=== PATIENT | female | born 1960 | race Caucasian/White ===

== ENCOUNTER 2017-07-15 09:16 | Emergency (ER) | payer SELFPAY ==
[~2017-07-15] VITALS: Ht 175.3 cm; Wt 78.0 kg
[~2017-07-15 09:16] MED LIST: ADDE30TA PO; ALPR.25 PO; CLON.5 PO
[2017-07-15 09:22] VITALS: BP 142/85; PULSE 84; RESP 15; TEMP 98.5; O2SAT 97
[2017-07-15] MEDS ORDERED: PERM5CRE11 TOPICAL (11:45)
--- NOTE | 2017-07-15 11:52 | PD ---
HPI Chief Complaint: Skin Problem Time Seen by Provider: 11:29 Travel History International Travel<30 days: No Contact w/Intl Traveler<30days: No Traveled to known affect area: No History of Present Illness HPI 57-year-old female presents the emergency department with 2 weeks of itchy rash to both feet, lower legs, hands, wrists, and perineal region. Patient is questioning whether it is from poison oak or sumac. Patient denies fever, chills, or other symptoms. She has been using [id number] medications without improvement. She is allergic to acetaminophen and propoxyphene. [facility] Past Medical History Musculoskeletal: Yes (chronic back pain) ?: Not Social History Alcohol Use: No Tobacco Use: Yes Allergies-Medications (Allergen,Severity, Reaction): Coded Allergies: acetaminophen (Verified Allergy, Severe, Hives, 07/15/17) propoxyphene (Verified Allergy, Severe, Hives, 07/15/17) Reported Meds & Prescriptions Reported Meds & Active Scripts Active Elimite Topical (Permethrin) 5% Cream 1 Applic TOPICAL ONCE Reported Klonopin (Clonazepam) 0.5 Mg Tab 0.5 Mg PO DAILY Xanax 0.25 Mg (Alprazolam) Alprazolam 0.25 mg Tab 1 Tab PO BID Adderall 30 mg (Amphetamine/Dextroamphetamine) 30 Mg Tab 30 Mg PO DAILY Physical Exam Narrative GENERAL: She has no acute distress. SKIN: Warm and dry. Normal color. Normal turgor. Patient has excoriated linear skin lesions to both lower extremities, feet, hands, wrists, and groin region consistent with scabies. There is no obvious signs of cellulitis, abscess, lymphangitis. HEAD: Atraumatic. Normocephalic. EYES: Pupils equal and round. No scleral icterus. No injection or drainage. ENT: No nasal bleeding or discharge. Mucous membranes pink and moist. Pharynx is clear. Airway is patent. NECK: Trachea midline. Supple. CARDIOVASCULAR: Regular rate and rhythm. RESPIRATORY: No accessory muscle use. Clear to auscultation. Breath sounds equal bilaterally. MUSCULOSKELETAL: Extremities without clubbing, cyanosis, or edema. No obvious deformities. NEUROLOGICAL: Awake and alert. No obvious cranial nerve deficits. Motor grossly within normal limits. Five out of 5 muscle strength in the arms and legs. Normal speech. PSYCHIATRIC: Appropriate mood and affect; insight and judgment normal. Data Data Last Documented VS Orders Orders Ed Discharge Order (07/15/17 11:52) MDM Medical Decision Making Medical Screen Exam Complete: Yes Emergency Medical Condition: Yes Differential Diagnosis Rash. Pruritus. Scabies. Narrative Course Patient is felt to have scabies. Patient is treated with Elimite 5% as per directed with 1 refill to be used in 1 week if not improving. Information regarding scabies is given to the patient. Patient follow-up as needed. Diagnosis Primary Impression: Scabies Referrals: [facility] Patient Instructions: General Instructions, Scabies (ED) Additional Instructions: Patient is felt to have scabies. Patient is treated with Elimite 5% as per directed with 1 refill to be used in 1 week if not improving. Information regarding scabies is given to the patient. Patient follow-up as needed. Scripts Permethrin Topical (Elimite Topical) 5% Cream 1 APPLIC TOPICAL ONCE for Scabies, #1 TUBE 1 Refill Prov: Hubert Tavera MD 07/15/17 Disposition: 01 DISCHARGE HOME Condition: Stable Guilherme Alfaro Jul 15, 2017 11:52
== END 2017-07-15 12:07 | disposition home or self-care (01) ==
LOC: NEPK 09:16
DX: B86 Scabies (principal)
CPT/HCPCS: 99283